=== PATIENT | male | born 1970 | race Caucasian/White ===

== ENCOUNTER 2018-12-15 19:09 | Emergency (ER) | payer MEDICAID, OTHER ==
[~2018-12-15] VITALS: Ht 182.9 cm; Wt 109.7 kg
[2018-12-15 19:13] VITALS: Ht 182.9 cm; Wt 109.7 kg
--- NOTE | 2018-12-15 20:22 | ERD ---
ER Documentation Chief Complaint Chief Complaint BILAT SWELLING OF LEGS WITH PAIN X 1 MO HPI The patient is a 48-year-old male, presenting to the ER because he complains of intermittent chest pain, dyspnea, lower back pain, bilateral thigh pain and swelling after back surgery about a month ago by Dr. Mcadams. He complains of sensitive to touch in his lower extremity, denies hemoptysis, hematemesis. He was seen by Dr. Mcadasm about 2 weeks ago who treated him with pain medication. He saw his physician and pain management doctor today. He c/o chest pain/back pain intermittently. He denies of fever, chills, neck pain, abdominal pain, vomiting, fecal/urinary incontinence. Dr. Mcadams spoke with me and requested evaluation for his bilateral thigh swollen and pain. Past medical history: Chronic low back pain, diabetes mellitus Past surgical history: Back surgery, left femur surgery Social history he denies smoking drinking or history of IV drug abuse ROS All systems reviewed and are negative except as per history of present illness. Medications Home Meds Active Scripts Tramadol HCl (Tramadol HCl) 50 Mg Tablet, 50 MG PO Q6 PRN for PAIN, #10 TAB Prov:TRAVIS BATES MD 12/16/18 Reported Medications Aspirin Ec (Aspir 81) 81 Mg Tablet.dr, 81 MG PO DAILY, #30 TAB 12/16/18 Lisinopril* (Lisinopril*) 10 Mg Tablet, 10 MG PO DAILY, #30 TAB 12/16/18 Glipizide* (Glipizide*) 10 Mg Tablet, 10 MG PO BID, TAB 12/16/18 Sitagliptin Phos/Metformin HCl (Janumet 50-1,000 mg Tablet) 1 Each Tablet, 1 EACH PO BID, TAB 12/16/18 Allergies Allergies: Coded Allergies: No Known Allergy (Unverified , 12/15/18) Physical Exam Vitals Vital Signs Date Temp Pulse Resp B/P (MAP) Pulse Ox O2 O2 Flow FiO2 Time Delivery Rate 12/16/18 97.7 88 20 147/89 99 Room Air 02:17 (108) 12/16/18 97.7 95 20 142/92 99 Room Air 00:13 (109) 12/15/18 97.7 86 16 132/82 99 Room Air 20:45 (99) 12/15/18 98.5 88 20 146/92 100 19:13 (110) Physical Exam Const: No acute distress. Head: Atraumatic. Eyes: Normal Conjunctiva. ENT: Normal External Ears, Nose and Mouth. Neck: Full range of motion. No meningismus. Resp: Clear to auscultation bilaterally. Cardio: Regular rate and rhythm. Abd: Soft, non distended, normal bowel sounds, non tender. Skin: No petechiae or rashes. Back: No midline or flank tenderness. Ext: Bilateral thigh with lateral mass more on the left than the right moderate tender, not warm to touch, nonmobile, vague bilateral calf tenderness Neur: Awake and alert. No focal deficit Psych: Normal Mood and Affect. Result Diagram: 12/15/18205012/15/182050 Results 24 hrs Laboratory Tests Test 12/15/18 20:51 White Blood Count 8.8 10^3/ul Red Blood Count 4.11 10^6/ul Hemoglobin 11.9 g/dl Hematocrit 35.9 % Mean Corpuscular Volume 87.3 fl Mean Corpuscular Hemoglobin 29.0 pg Mean Corpuscular Hemoglobin Concent 33.1 g/dl Red Cell Distribution Width 13.3 % Platelet Count 298 10^3/UL Mean Platelet Volume 9.8 fl Immature Granulocytes % 0.300 % Neutrophils % 62.5 % Lymphocytes % 23.8 % Monocytes % 9.9 % Eosinophils % 2.6 % Basophils % 0.9 % Nucleated Red Blood Cells % 0.0 /100WBC Immature Granulocytes # 0.030 10^3/ul Neutrophils # 5.5 10^3/ul Lymphocytes # 2.1 10^3/ul Monocytes # 0.9 10^3/ul Eosinophils # 0.2 10^3/ul Basophils # 0.1 10^3/ul Nucleated Red Blood Cells # 0.0 10^3/ul D-Dimer 2498.99 ng/ml D-Dimer Comment Sodium Level 140 mmol/L Potassium Level 4.3 mmol/L Chloride Level 101 mmol/L Carbon Dioxide Level 27 mmol/L Anion Gap 12 Blood Urea Nitrogen 13 mg/dl Creatinine 0.50 mg/dl Est Glomerular Filtrat Rate mL/min > 60 mL/min Glucose Level 301 mg/dl Calcium Level 9.6 mg/dl Troponin I < 0.012 ng/ml Urine Opiates Screen Negative Urine Barbiturates Negative Urine Amphetamines Screen Negative Urine Benzodiazepines Screen Negative Urine Cocaine Screen Negative Urine Cannabinoids Negative Current Medications Medications Dose Sig/Lucy Start Time Status Last (Trade) Ordered Route PRN Stop Time Admin Dose Reason Admin 1 tab ONCE ONCE 12/15/18 DC 12/15/18 Acetaminophen PO 23:00 23:02 / 12/15/18 23:01 Hydrocodone Bitart ([place] (10/325)) Ketorolac 30 mg ONCE STAT 12/16/18 DC 12/16/18 Tromethamine IV 00:21 00:34 (Toradol) 12/16/18 00:22 1 tab ONCE ONCE 12/16/18 DC 12/16/18 Acetaminophen PO 02:30 02:06 / 12/16/18 02:31 Hydrocodone Bitart ([place] (10/325)) Procedures/MDM [place] [address] Radiology Main Line: [phone] DIAGNOSTIC IMAGING REPORT Patient: RO RIVERA : 1970 Age: 48 Sex: M MR #: [id number] DOS: 12/15/182040 Ordering MD: TRAVIS BATES MD Location: E/R Room/Bed: PROCEDURE: XR Chest. CLINICAL INDICATION: chest pain TECHNIQUE: Single frontal view of the chest was obtained COMPARISON: None FINDINGS: The heart and mediastinum are within normal limits. The lungs are clear. There is no pleural effusion or pneumothorax. RPTAT: AA IMPRESSION: No acute disease. .Alhaji Mcguire MD, MD Date Time Electronically viewed and signed by .Alhaji Mcguire MD, on 12/15/2018 21:30 .S/ CC: TRAVIS BATES MD [id number] [place] [address] Radiology Main Line: [phone] DIAGNOSTIC IMAGING REPORT Patient: RO RIVERA : 1970 Age: 48 Sex: M MR #: [id number] DOS: 12/15/182040 Ordering MD: TRAVIS BATES MD Location: E/R Room/Bed: PROCEDURE: US Lower extremity Venous. CLINICAL INDICATION: Bilateral lower extremity edema TECHNIQUE: Multiple sonographic images of the bilateral lower extremity deep venous system was obtained utilizing grayscale, color-flow, compressive sonography and doppler imaging with augmentation. The images were reviewed on a PACS workstation. COMPARISON: None. FINDINGS: There is normal compressibility and flow within the right common femoral, femoral , posterior tibial and popliteal veins. There is normal compressibility and flow within the left common femoral, femoral , posterior tibial and popliteal veins. There is enlargement of the muscles in the left thigh, compared to the right. RPTAT: AA IMPRESSION: No sonographic evidence for deep venous thrombosis. Prominent muscles in the left thigh, compared to the right. Follow-up CT or MRI with contrast is recommended. .Alhaji Mcguire MD, MD Date Time Electronically viewed and signed by .Alhaji Mcguire MD, MD on 12/15/2018 21:30 .S/ CC: TRAVIS BATES MD [id number] [place] [address] Radiology Main Line: [phone] DIAGNOSTIC IMAGING REPORT Patient: RO RIVERA : 1970 Age: 48 Sex: M MR #: [id number] DOS: 12/15/182040 Ordering MD: TRAVIS BATES MD Location: E/R Room/Bed: PROCEDURE: CT left lower extremity without contrast. CLINICAL INDICATION: Pain and swelling TECHNIQUE: CT scan of the left lower extremity from the mid pelvis to the foot was performed on a multi-detector high-resolution CT scanner. Coronal and sagittal reformatted images were obtained from the axial source images. Images were reviewed on a high-resolution PACS workstation. The total exam CTDI equals 5.1 mGy and the total exam DLP equals 578 mGy-cm. DICOM images are available. 3- D reconstructions were not performed on the radiologist's workstation and evaluated for fractures. One or more of the following dose reduction techniques were utilized: 1.) Automated exposure control 2.) Adjustment of the mA +/- kV according to patient's size 3.) Use of iterative reconstruction technique. COMPARISON: Right lower extremity FINDINGS: Patient has undergone previous left hip pinning. The pins are intact and do not extend beyond the cortex of the femoral head. The acetabulum is unremarkable. The remainder of the femur, the patella, the tibia, fibula, and tarsals appear unremarkable. There are no visible focal soft tissue masses or abnormal fluid collections in the left lower extremity. There is no evidence of gross subcutaneous edema. The rectus femoris muscle on the left is more prominent than that on the right side. IMPRESSION: 1. Asymmetry primarily of the rectus femoris muscles, with the left larger than the right. There is no way to tell based solely on this examination if this represents right-sided atrophy or left-sided enlargement. Correlation with history and physical examination is recommended. Without contrast material, hemorrhage or an active inflammatory process in the left rectus muscle cannot be excluded based on this examination. As previously noted, MRI might be considered if this region remains of clinical concern. RPTAT:AAJJ Physician Johnson Date Time Electronically viewed and signed by Physician Johnson on 12/15/2018 22:47 GW/ CC: TRAVIS BATES MD [id number] [place] [address] Radiology Main Line: [phone] DIAGNOSTIC IMAGING REPORT Patient: RO RIVERA : 1970 Age: 48 Sex: M MR #: [id number] DOS: 12/15/182040 Ordering MD: TRAVIS BATES MD Location: E/R Room/Bed: PROCEDURE: CT right lower extremity without contrast. CLINICAL INDICATION: Pain and swelling TECHNIQUE: CT scan of the right lower extremity from the mid pelvis to the foot was performed on a multi-detector high-resolution CT scanner. Coronal and sagittal reformatted images were obtained from the axial source images. Images were reviewed on a high-resolution PACS workstation. The total exam CTDI equals 6.2 mGy and the total exam DLP equals 720 mGy-cm. DICOM images are available. 3-D reconstructions were notperformed on the radiologist's workstation and evaluated for fractures. One or more of the following dose reduction techniques were utilized: 1.) Automated exposure control 2.) Adjustment of the mA +/- kV according to patient's size 3.) Use of iterative reconstruction technique. COMPARISON: Left lower extremity same date FINDINGS: The acetabulum, femur, patella, tibia, fibula, and tarsals appear grossly unremarkable. No lytic or blastic abnormalities are evident. The soft tissues of the lower extremity show no masses or abnormal fluid collections. There are no unusual calcifications. There is no visible subcutaneous edema. There is no gross evidence of joint effusion at the hip, knee, or ankle. IMPRESSION: 1. Unremarkable CT scan of the right lower extremity. RPTAT:AAJJ Physician Johnson Date Time Electronically viewed and signed by Physician Johnson on 12/15/2018 22:38 GW/ CC: TRAVIS BATES MD [id number] [place] [address] Radiology Main Line: [phone] DIAGNOSTIC IMAGING REPORT Patient: RO RIVERA : 1970 Age: 48 Sex: M MR #: [id number] DOS: 12/15/182040 Ordering MD: TRAVIS BATES MD Location: E/R Room/Bed: PROCEDURE: CT Lumbar Spine Without Intravenous Contrast CLINICAL INDICATION: Low back pain. TECHNIQUE: Axial computed tomography images of the lumbar spine without intravenous contrast. Sagittal and coronal reformatted images were created and reviewed. CTDIvol (mGy) = 38.24; total DLP (mGy-cm) = 1107.[address] exam was performed using one or more of the following dose reduction techniques: automated exposure control, adjustment of the mA and/or kV according to patient size, and/or use of iterative reconstruction technique. DICOM images are available. COMPARISON: None FINDINGS: VERTEBRAE: Vertebral alignment is physiologic. No compression fractures are noted. SOFT TISSUES: Unremarkable. DISCS/SPINAL CANAL/NEURAL FORAMINA: T12-L1: Minimal vertebral end plate irregularity. Normal disc height. No disc bulge of disc protrusion. No spinal canal or neural foraminal stenosis. L1-L2: Normal disc height. Small Schmorl's node. No disc bulge or disc protrusion. No significant spinal canal or neural foraminal stenosis. L2-L3: Normal disc height. No disc bulge or disc protrusion. No spinal canal or neural foraminal stenosis. L3-L4: Normal disc height. Small Schmorl's node. Mild diffuse disc bulge. Hypertrophic facet joint changes. Mild central spinal canal stenosis. Mild bilateral neural foraminal stenosis. L4-L5: Status post anterior and posterior fusion from L4-S1. Posterior hardware is intact. L4-5 L5-S1 disc spacers are noted. No bridging ossification across the intervertebral disc spaces yet identified. Right laminectomy. Anterior and posterior fusion. No stenosis. L5-S1: Right laminectomy. Anterior and posterior fusion. No stenosis. IMPRESSION: 1. There are postop changes noted from L4-S1, as above. No stenosis at the postop levels. 2. Incidental note made of mild diffuse disc bulge at L3-4, associated with mild central spinal canal and mild bilateral neural foraminal stenosis. 3. No acute abnormality demonstrated. RPTAT: [facility] Jeanne Berger Physician Phd Internship Date Time Electronically viewed and signed by Jeanne Berger Physician [employer]d Internship on 12/15/2018 22:13 C/ CC: TRAVIS BATES MD [id number] [place] [address] Radiology Main Line: [phone] DIAGNOSTIC IMAGING REPORT Patient: RO RIVERA : 1970 Age: 48 Sex: M MR #: [id number] DOS: 12/15/18 0000 Ordering MD: TRAVIS BATES MD Location: E/R Room/Bed: PROCEDURE: CTA Chest and pulmonary angiogram. CLINICAL INDICATION: Chest pain, leg swelling TECHNIQUE: 3D volume rendering post processing was performed. CTA scan of the chest and CT pulmonary angiogram was performed on a multidetector high-resolution CT scanner. High-resolution thin slice coronal and sagittal imaging was obtained from the axial source images. The patient was examined following the intravenous administration of 100 cc of Omnipaque 350. The images were reviewed on a PACS workstation. The total exam CTDI equals 25.35, 20.12, 8.61 mGy, and the total exam DLP equals 1334.97 mGy-cm. One or more the following dose reduction techniques were utilized: Automated exposure control, adjustment of the mA and / or kV according to patient's size, or use of iterative reconstruction technique. DICOM images are available. COMPARISON: DR HANEY 12/15/2018 FINDINGS: There is suboptimal opacification of pulmonary arteries due to bolus timing and dense contrast in the superior vena cava. No 7 filling defects suggestive of emboli are seen in main, lobar or segmental pulmonary arteries. No thoracic aortic aneurysm or dissection is seen. No enlarged mediastinal lymph nodes are seen. No pleural effusion is seen. Mild dependent atelectasis in posterior lungs. Degenerative enthesopathy in thoracic spine. Diffuse idiopathic skeletal hyperostosis. 2 cm cyst in the visualized upper left kidney. IMPRESSION: No definite evidence of pulmonary emboli. Please see above. RPTAT: [facility] .Asad Santillan MD, MD Date Time Electronically viewed and signed by .Asad Santillan MD, on 12/16/2018 00:50 .S/ CC: TRAVIS BATES MD [id number] EKG: Read by emergency physician Rate/Rhythm: Normal Sinus Rhythm 96 beats/min QRS, ST, T-waves: No ST elevation, no T inversion, IRBBB Impression: Abnormal EKG CT with IV contrast of bilateral lower extremity as recommended by radiologist are pending MEDICAL MAKING DECISION: The patient is a 48-year-old male, presenting with multiple complaints, ruled out pulmonary embolism/spinal abscess. The CT with IV contrast of the lower extremity are pending at the time of dictation. He was treated with [place] 10 mg p.o. and Toradol 30 mg IV for pain with good response while we are waiting for the studies The differential diagnoses considered include but are not limited to rupture muscle, cellulitis, abscess, sarcoma, ACS, PE, PNA Departure Diagnosis: Primary Impression: Leg pain, bilateral Additional Impressions: Chest pain Anemia Condition: Good Comments The patient was signed out to Dr. Mathew at 12:30am, pending on the CT with IV contrast of the lower extremity, if negative, the patient can be discharged and followed-up with Dr. Mcadams Disclaimer: Inadvertent spelling and grammatical errors are likely due to EHR/dictation software use and do not reflect on the overall quality of patient care. Also, please note that the electronic time recorded on this note does not necessarily reflect the actual time of the patient encounter. TRAVIS BATES MD Dec 15, 2018 20:22
[2018-12-15] MEDS ORDERED: HYDROCODONE/APAP (10/325) TAB PO ONE (23:00)
[2018-12-16] MEDS ORDERED: KETOROLAC 30 MG INJ IV STA (00:21)
[2018-12-16] MEDS ORDERED: TRAM50TA2 PO (00:41)
[2018-12-16 02:17] VITALS: BP 147/89; PULSE 88; RESP 20
[2018-12-16] MEDS ORDERED: HYDROCODONE/APAP (10/325) TAB PO ONE (02:30)
[2018-12-16] MEDS ORDERED: LISI10TA2 PO (02:58)
[2018-12-16] MEDS ORDERED: ASPI-535 PO (02:58)
[2018-12-16] MEDS ORDERED: GLIP10TA14 PO (02:58)
[2018-12-16] MEDS ORDERED: SITA1TAB5 PO (02:58)
== END 2018-12-16 02:19 | disposition home or self-care (01) ==
LOC: E/R 19:09
DX: R07.9 Chest pain, unspecified (principal); D64.9 Anemia, unspecified; M79.604 Pain in right leg; M79.605 Pain in left leg; E11.9 Type 2 diabetes mellitus without complications; Z79.84 Long term (current) use of oral hypoglycemic drugs
CPT/HCPCS: 36415; 71045; 71275; 72131; 73700; 80048; 80307; 84484; 85025; 85378; 93005; 93970; 96374; J1885; Z7502; Z7610